=== PATIENT | male | born 1970 | race Caucasian/White ===

== ENCOUNTER 2018-03-15 02:10 | Emergency (ER) | payer BC ==
[2018-03-15 02:13] VITALS: BP 158/79; PULSE 78; RESP 16; TEMP 98.2; O2SAT 99
[2018-03-15] MEDS ORDERED: AUGM875T3 PO (03:12)
[2018-03-15] MEDS ORDERED: TETANUS/DIPHTHERIA TOXOID ADULT 0.5 ML VIAL IM ONE (03:15)
[2018-03-15] MEDS ORDERED: LIDOCAINE 1%/EPINEPHrine 1:100,000 SOLN 20 ML VIAL INFIL ONE (03:15)
[2018-03-15] MEDS ORDERED: AMOXICILLIN/CLAVULANATE K 875 MG TAB PO ONE (03:15)
--- NOTE | 2018-03-15 03:18 | PD ---
HPI Chief Complaint: Laceration/Skin Injury Time Seen by Provider: 03:05 Travel History International Travel<30 days: No Contact w/Intl Traveler<30days: No Traveled to known affect area: No History of Present Illness HPI 48-year-old white male presents emergency department for evaluation of lacerations to his face that occurred when his dog jump up in bed with him this evening. He states that his paw went into his face causing a laceration to his left cheek and left lower lip. He has not had a tetanus shot in over 5 years. He denies any dental injuries. No ocular injury. He states that this was not a bite. Pain is mild. No alleviating or exacerbating activity. [facility] Past Medical History Medical History: Denies Significant Hx Diminished Hearing: No Immunizations Current: Yes Tetanus Vaccination: > 5 Years Social History Alcohol Use: Yes Tobacco Use: No Substance Use: No Allergies-Medications (Allergen,Severity, Reaction): Coded Allergies: No Known Allergies (Unverified , 03/15/18) Review of Systems Except as stated in HPI: all other systems reviewed are Neg Physical Exam Narrative GENERAL: Well-developed, well-nourished in no apparent distress. Nontoxic appearing. HEAD: Patient has an abrasion to the left cheek with a small puncture. This is nonsuturable. Patient also has a 2 cm laceration to the buccal mucosa of the lower lip. This is somewhat gaping. No through and through injuries. EYES: Pupils equal round and reactive. Extraocular motions intact. No scleral icterus. No injection or drainage. ENT: Nose clear. Throat without erythema, tonsillar hypertrophy or exudate. Uvula midline. Airway patent. NECK: Trachea midline. Supple, nontender, moves head freely. No central bony tenderness or spasm. CARDIOVASCULAR: Regular rate and rhythm without murmurs, gallops, or rubs. RESPIRATORY: Clear to auscultation. Breath sounds equal bilaterally. No wheezes , rales, or rhonchi. GASTROINTESTINAL: Abdomen soft, non-tender, nondistended. No hepato-splenomegaly , or palpable masses. No guarding. EXTREMITIES: No clubbing, cyanosis, or edema. No joint tenderness. BACK: Nontender without deformity. No flank tenderness. NEUROLOGICAL: Awake, alert and oriented x 3 .Cranial nerves grossly intact. Motor and sensory grossly within normal limits. Normal speech. Data Data Last Documented VS Vital Signs Date Time Temp Pulse Resp B/P (MAP) Pulse Ox O2 Delivery O2 Flow Rate FiO2 03/15/18 02:13 98.2 78 16 158/79 (105) 99 Orders Orders Tetanus/Diphtheria Tox Adult (Tetanus/Di (03/15/18 03:15) Lidocai-Epi 1%-1:100,000 Inj (Xylocaine- (03/15/18 03:15) Amoxicil-Clavulanate (Augmentin) (03/15/18 03:15) MDM Medical Decision Making Medical Screen Exam Complete: Yes Emergency Medical Condition: Yes Medical Record Reviewed: Yes Differential Diagnosis MDM: High Differential diagnoses: Fracture, sprain, strain, dislocation, contusion, neurovascular injury, laceration, puncture wounds, dog scratch, dog bite Narrative Course Patient sustained a laceration to his inner lower lip. He is also puncture wound to his left cheek. These have been cleansed and dressed. His laceration was closed with sutures. He is given Augmentin 875 mg p.o. Tetanus immunization as well. Procedures Procedure Narrative LACERATION LOCATION: Lower lip buccal mucosa LENGTH: 2 cm NUMBER OF STITCHES/VANI: 2 REPAIR: The area of the laceration was prepped with Betadine and sterilely draped. The laceration was infiltrated with 1% lidocaine with epinephrine. The wound was copiously irrigated and explored without evidence of foreign body , tendon injury or neurovascular injury. The wound was closed using 5-0 Vicryl. This was a simple single layer repair. Patient tolerated the procedure well. Diagnosis Primary Impression: Facial lacerations Additional Impression: Dog scratch Patient Instructions: General Instructions Additional Instructions: Rest. Ice pack tonight. Tylenol or Advil for pain. Daily wound care with soap, water, Neosporin. Sutures out in 10 days. Augmentin. Follow-up with the medical doctor in the next 3-5 days for recheck. Return to the ER for any problems. Med/Other Pt SpecificInfo: Prescription(s) given Scripts Amoxicillin-Clavulanate (Augmentin) 875-125 Mg Tab 1 TAB PO BID for Infection, #14 TAB 0 Refills Prov: Cherry Plascencia MD 03/15/18 Disposition: 01 DISCHARGE HOME Condition: Stable Yfn Schilling Mar 15, 2018 03:18
== END 2018-03-15 04:02 | disposition home or self-care (01) ==
LOC: NEPD 02:10
DX: S01.511A Laceration without foreign body of lip, initial encounter (principal); S01.412A Laceration without foreign body of left cheek and temporomandibular area, initial encounter; W54.1XXA Struck by dog, initial encounter; Z23 Encounter for immunization
CPT/HCPCS: 12011; 90471; 90714